=== PATIENT | male | born 1995 | race African-American/Black ===

== ENCOUNTER 2020-06-21 12:43 | Observation (INO) ==
[2020-06-21] MEDS ORDERED: SODIUM CHLORIDE 0.9% 1000ML 1,000 ML IV SCH (13:30)
[2020-06-21] MEDS ORDERED: ONDANSETRON INJ 2 MG/ML 2 ML VIAL IV STA (13:43)
[2020-06-21 14:04] LABS: Basophils # (auto) 0.03 K/uL (0-0.2); Basophils % (auto) 0.2 %; Eosinophils # (auto) 0.06 K/uL (0-0.5); Eosinophils % (auto) 0.4 %; Hematocrit (blood only) 42.8 % (42-52); Hemoglobin 15.5 g/dL (14.0-18.0); Immature Granulocytes # (auto) 0.04 K/uL (0.00-0.02); Immature Granulocytes % (auto) 0.3 %; Lymphocytes # (auto) 4.18 K/uL (1.2-3.4); Lymphocytes % (auto) 30.9 %; Mean Corpuscular Hemoglobin 32.8 pg (25-34); Mean Corpuscular Hgb Conc 36.2 g/dL (32-36); Mean Corpuscular Volume 90.7 fL (80-100); Monocytes # (auto) 0.73 K/uL (0.11-0.59); Monocytes % (auto) 5.4 %; Neutrophils # (auto) 8.48 K/uL (1.4-6.5); Neutrophils % (auto) 62.8 %; Platelet Count 230 K/uL (130-400); RDW Coefficient of Variation 13.1 % (11.5-14.5); RDW Standard Deviation 43.8 fL (36.4-46.3); Red Blood Count 4.72 M/uL (4.7-6.1); White Blood Count 13.52 K/uL (4.8-10.8)
--- NOTE | 2020-06-21 14:13 | Emergency Department Note ---
Impression & Plan Enterocolitis, Abdominal pain ED Provider Note NAME: RISA BLEVINS AGE: 25 SEX: M : 1995 ARRIVES VIA: Walk-In INFORMANT: Patient, ED PROVIDER(S): Nino Maxwell DO CHIEF COMPLAINT: Abdominal pain HPI: The patient is a 25-year-old male who presented to the emergency department at the request of [facility] for an evaluation of possible appendicitis. The patient is been having 2 weeks of crampy intermittent abdominal pain with nausea vomiting and diarrhea. Symptoms have been worsening over the last few days and this is why he went to see [facility]. He was also concerned about COVID-19 because he traveled recently to [facility]. He had a COVID-19 swab sent from [facility] which is still pending. The patient denies having any fever. He denies having any cough. He denies having any rectal bleeding. He is not been on antibiotics recently. He states that his last work-up when he saw his infectious disease specialist revealed normal labs and nondetectable virus. He states that he has been compliant with his medications. He is not been on antibiotics recently. ROS: See above HPI for pertinent positives & negatives. A total of 10 systems reviewed and were otherwise negative. PAST MEDICAL HISTORY: See Below PAST SURGICAL HISTORY: See Below FAMILY HISTORY: See Below SOCIAL HISTORY: See Below HOME MEDICATIONS: See Below ALLERGIES: See Below VITALS: See Below PHYSICAL EXAMINATION: GENERAL: Patient is awake alert in no acute distress patient is resting comfortably and showing no signs of anxiety EYES: The conjunctivae are clear. The pupils are round and reactive. EARS, NOSE, MOUTH AND THROAT: The nose is without any evidence of any deformity. Mucous members are moist. NECK: The neck is nontender and supple. RESPIRATORY: Normal respiratory effort is noted there is no evidence of wheezing rhonchi or rales CARDIOVASCULAR: Regular rate and rhythm noted there no murmurs rubs or gallops normal S1 normal S2. GASTROINTESTINAL: The abdomen is mildly distended and diffusely tender. There is no specific guarding or rigidity. MUSCULOSKELETAL/EXTREMITIES: There is no evidence of gross deformity full range of motion is noted in the hips and shoulders. SKIN: There is no obvious evidence of any rash. There are no petechiae, pallor or cyanosis noted. NEUROLOGIC: Patient is awake alert and oriented x3 strength is symmetric patellar reflexes are 2+ bilaterally MEDICAL DECISION MAKING: The patient is a 25-year-old male who has a history of being HIV positive. The patient has been on HIV medication for quite some time. He has been in good health prior to the last few weeks where he started to notice abdominal pain and diarrhea. The patient was seen at [facility]. At that time he did have a COVID swab although he does not have pulmonary COVID symptoms. The patient was sent to the emergency department from formerly [facility] for further work-up of possible appendicitis. I discussed the patient's laboratory and radiographic studies with him. He was treated with IV fluids and IV antiemetics. He was evaluated by the general surgeon because of a CAT scan that was not conclusive for appendicitis. At this time I feel the patient's condition is more likely consistent with an enterocolitis. The general surgical service did recommend that we observe the patient on the medicine service to ensure his symptoms are improving. Otherwise the patient was feeling much better. Stool was C. difficile negative. Triage Nursing notes reviewed. Prior medical records reviewed Vital Signs: reviewed and remarkable for no significant abnormalities DiffEtiologies such as appendicitis, diverticulitis, obstruction, inflammatory bowel disease, renal colic, PUD, biliary pathology, pancreatitis, mesenteric ischemia, aortic pathology, infections, genitourinary, UTI, perforated viscus, as well as others were entertained. ER treatment provided: See below Diagnostics interpreted by me: ECG: none Cardiac Monitoring: An order was placed for continuous cardiac monitoring. The monitor shows a rate of 89 with sinus rhythm. Laboratory studies: As stated above and show below. Imaging studies: See below Consultation(s): 1600: I discussed this case with Dr. Zavaleta who is on-call for general surgery. 1700: Dr. Deleon was notified about the patient. He will evaluate the patient for further management and disposition. ED COURSE: Procedures: none PDMP:reviewed and no issues Critical Care: None Past Med/Surg History Medical History HIV positive Surgical History History of tonsillectomy Social History Smoking Status: Smoker, status unknown Feels Safe at Home: Yes Allergies Allergies Allergy/AdvReac Type Severity Reaction Status Date / Time No Known Allergies Allergy Unverified 06/21/20 14:51 Home Meds Home Medications Medication Instructions Recorded Confirmed tisdvezvw-cwliicxg-sufgasa ala 1 tab PO QAM 06/21/20 06/21/20 [Biktarvy] Results & Data (ED) Vital Signs Vital Signs - 24 hr 06/21/20 12:50 06/21/20 13:49 06/21/20 13:51 Temperature 37.0 C Temperature Source Oral Pulse Rate 93 H Pulse Rate [Apical] 89 Pulse Rate from SpO2 Sensor Respiratory Rate 20 20 Respiratory Effort / Characteristics Non-Labored Respiratory Depth Normal Normal Respiratory Pattern Regular Blood Pressure 131/78 Blood Pressure [Left Arm] 120/65 Blood Pressure Mean 95 Blood Pressure Mean [Left Arm] 83 Blood Pressure Position Sitting Pulse Oximetry 99 99 97 Oxygen Delivery Method Room Air Room Air Room Air Sepsis Recent Fever Within 48 Hours No Sepsis New/Unexplained Change in Mental Status No Sepsis Action Taken by Nursing No Action Required 06/21/20 14:13 06/21/20 14:30 06/21/20 15:00 Temperature Temperature Source Pulse Rate 88 86 88 Pulse Rate [Apical] Pulse Rate from SpO2 Sensor 91 H 87 86 Respiratory Rate 14 19 16 Respiratory Effort / Characteristics Respiratory Depth Respiratory Pattern Blood Pressure 99/59 L 121/63 118/77 Blood Pressure [Left Arm] Blood Pressure Mean 87 84 94 Blood Pressure Mean [Left Arm] Blood Pressure Position Pulse Oximetry 98 96 97 Oxygen Delivery Method Room Air Sepsis Recent Fever Within 48 Hours Sepsis New/Unexplained Change in Mental Status Sepsis Action Taken by Jail Medications Current Medication List: was personally reviewed by me Laboratory Data Attestation: I reviewed the patient's lab results. Result diagrams: 06/21/20 13:40 06/21/20 13:40 Lab Results 06/21/20 06/21/20 06/21/20 Range/Units 13:40 13:40 14:05 WBC 13.52 H (4.8-10.8) K/uL RBC 4.72 (4.7-6.1) M/uL Hgb 15.5 (14.0-18.0) g/dL Hct 42.8 (42-52) % MCV 90.7 (80-100) fL MCH 32.8 (25-34) pg MCHC 36.2 H (32-36) g/dL RDW Std Deviation 43.8 (36.4-46.3) fL RDW Coeff of Joaquín 13.1 (11.5-14.5) % Plt Count 230 (130-400) K/uL MPV 10.0 (7.4-10.4) fL Immature Gran % (Auto) 0.3 % Neut % (Auto) 62.8 % Lymph % (Auto) 30.9 % [place] % (Auto) 5.4 % Eos % (Auto) 0.4 % Baso % (Auto) 0.2 % Neut # (Auto) 8.48 H (1.4-6.5) K/uL Lymph # (Auto) 4.18 H (1.2-3.4) K/uL [place] # (Auto) 0.73 H (0.11-0.59) K/uL Eos # (Auto) 0.06 (0-0.5) K/uL Baso # (Auto) 0.03 (0-0.2) K/uL Immature Gran # (Auto) 0.04 H (0.00-0.02) K/uL Sodium 141 (136-145) mmol/L Potassium 4.1 (3.5-5.1) mmol/L Chloride 108 H (98-107) mmol/L Carbon Dioxide 26 (21-32) mmol/L Anion Gap 7.0 (3-11) BUN 17 (7-18) mg/dl Creatinine 1.33 (0.6-1.4) mg/dl Est Cr Clr Drug Dosing 87.9 ml/min Est GFR ( Amer) 86.7 Est GFR (Non-Af Amer) 74.8 BUN/Creatinine Ratio 12.9 (10-20) Glucose 83 (70-99) mg/dl Calcium 8.5 (8.5-10.1) mg/dl Total Bilirubin 0.6 (0.2-1) mg/dl AST 25 (15-37) U/L ALT 36 (12-78) U/L Alkaline Phosphatase 73 (45-117) U/L Total Protein 7.5 (6.4-8.2) gm/dl Albumin 4.0 (3.4-5.0) gm/dl Globulin 3.5 (2.5-4.0) gm/dl Albumin/Globulin Ratio 1.1 (0.9-2) Lipase 108 (73-393) U/L Urine Color Yellow Urine Appearance Clear (Clear) Urine pH 5.0 (4.5-7.5) Ur Specific [place] 1.026 (1.000-1.030) Urine Protein Negative (Negative) Urine Glucose (UA) Negative (Negative) Urine Ketones Trace H (Negative) Urine Blood Negative (Negative) Urine Nitrite Negative (Negative) Urine Bilirubin Negative (Negative) Urine Urobilinogen Negative (Negative) Ur Leukocyte Esterase Negative (Negative) Stl C. diff Tox B Gene (Neg) 06/21/20 Range/Units 14:05 WBC (4.8-10.8) K/uL RBC (4.7-6.1) M/uL Hgb (14.0-18.0) g/dL Hct (42-52) % MCV (80-100) fL MCH (25-34) pg MCHC (32-36) g/dL RDW Std Deviation (36.4-46.3) fL RDW Coeff of Joaquín (11.5-14.5) % Plt Count (130-400) K/uL MPV (7.4-10.4) fL Immature Gran % (Auto) % Neut % (Auto) % Lymph % (Auto) % [place] % (Auto) % Eos % (Auto) % Baso % (Auto) % Neut # (Auto) (1.4-6.5) K/uL Lymph # (Auto) (1.2-3.4) K/uL [place] # (Auto) (0.11-0.59) K/uL Eos # (Auto) (0-0.5) K/uL Baso # (Auto) (0-0.2) K/uL Immature Gran # (Auto) (0.00-0.02) K/uL Sodium (136-145) mmol/L Potassium (3.5-5.1) mmol/L Chloride (98-107) mmol/L Carbon Dioxide (21-32) mmol/L Anion Gap (3-11) BUN (7-18) mg/dl Creatinine (0.6-1.4) mg/dl Est Cr Clr Drug Dosing ml/min Est GFR ( Amer) Est GFR (Non-Af Amer) BUN/Creatinine Ratio (10-20) Glucose (70-99) mg/dl Calcium (8.5-10.1) mg/dl Total Bilirubin (0.2-1) mg/dl AST (15-37) U/L ALT (12-78) U/L Alkaline Phosphatase (45-117) U/L Total Protein (6.4-8.2) gm/dl Albumin (3.4-5.0) gm/dl Globulin (2.5-4.0) gm/dl Albumin/Globulin Ratio (0.9-2) Lipase (73-393) U/L Urine Color Urine Appearance (Clear) Urine pH (4.5-7.5) Ur Specific [place] (1.000-1.030) Urine Protein (Negative) Urine Glucose (UA) (Negative) Urine Ketones (Negative) Urine Blood (Negative) Urine Nitrite (Negative) Urine Bilirubin (Negative) Urine Urobilinogen (Negative) Ur Leukocyte Esterase (Negative) Stl C. diff Tox B Gene Negative Cdiff Gene (Neg) Administered Medications Ioversol (Optiray 320 100ml) 93 ml IV ONCE PRN PRN Reason: Interaction Checking Stop: 06/25/20 15:15 Last Admin: 06/21/20 15:17 Dose: 93 ml Documented by: [id number] Discontinued Medications Sodium Chloride (Nss 1000ml) 1,000 mls @ 999 mls/hr IV .Q1H1M JESSICA Stop: 06/21/20 14:30 Last Infusion: 06/21/20 15:00 Dose: 0 mls/hr Documented by: [id number] Admin: 06/21/20 13:53 Dose: 999 mls/hr Documented by: [id number] Ondansetron HCl (Zofran) 4 mg IV NOW STA Stop: 06/21/20 13:44 Last Admin: 06/21/20 13:53 Dose: 4 mg Documented by: [id number] Imaging Data Radiologist's Impression: CT SCAN OF THE ABDOMEN AND PELVIS WITH IV CONTRAST CLINICAL HISTORY: Generalized abdominal pain. COMPARISON STUDY: No priors. TECHNIQUE: Following the IV administration of 94 cc of Optiray 320, CT scan of the abdomen and pelvis is performed from the lung bases to the proximal femora. Images are reviewed in the axial, sagittal, and coronal planes. IV contrast was administered without complication. A dose lowering technique was utilized adhering to the principles of ALARA. CT DOSE: 450.65 mGy.cm FINDINGS: Lung bases: The heart is normal in size and without pericardial effusion. The lung bases are clear. Liver: The contrast-enhanced liver is normal in size, contour, and attenuation. There is no intrahepatic biliary ductal dilatation. The hepatic veins and portal veins are patent. Gallbladder: Unremarkable. Spleen: Normal in size and attenuation. Pancreas: Unremarkable. Adrenal glands: Unremarkable. Kidneys: The contrast enhanced kidneys are normal in size and without hydronephrosis. The kidneys enhance symmetrically. Abdominal vasculature: The abdominal aorta is normal in course and caliber. Bowel: There is no bowel obstruction. Fecal retention and fluid is seen throughout the colon. The small bowel loops are mildly distended and fluid- filled. The base of the appendix is fluid-filled as seen on image #257. This is mildly thick-walled and measures up to 9 mm in diameter. The distal appendix is filled with gas Peritoneum: There is no intraperitoneal free air or abdominal ascites. Lymphadenopathy: There are numerous mildly enlarged mesenteric lymph nodes, likely reactive basis. Pelvic viscera: The bladder is decompressed and grossly unremarkable. The prostate and seminal vesicles are normal as visualized. Skeletal structures: No lytic or blastic lesions are seen. IMPRESSION: 1. The small bowel loops are mildly distended and fluid-filled, and there is liquid stool seen throughout the colon. The appearance favors a nonspecific enterocolitis, and clinical correlation will be required. 2. The appendix is identified in the right lower quadrant. The proximal appendix is mildly distended and fluid-filled with minimal wall thickening. The distal appendix is gas-filled and normal. These findings are likely related to the suspected enterocolitis. Acute appendicitis is considered much less likely but not entirely excluded. If there is strong clinical suspicion for acute appendicitis, or if the patient worsens with symptoms localizing to the right lower quadrant a short-term follow-up should be considered. 3. Numerous mildly enlarged mesenteric lymph nodes are likely on a reactive basis. 4. Additional findings as above. ACT 112: Negative or not required by law. Electronically signed by: Luan Damon M.D. 06/21/2020 3:34 PM Dictated: 06/21/20 1523 Transcribed: 06/21/20 1523 Blood Pressure Blood Pressure Findings: Normal blood pressure Discharge Plan Visit Data Chief Complaint: Abdominal Pain Stated Complaint: ABD PAIN ED Provider: Nino Maxwell Discharge Problem: Enterocolitis, Abdominal pain Patient Disposition: Being Evaluated by Hospitalist Condition: Good Forms Stand Alone Forms: [employer] Prescriptions Prescriptions: No Action Biktarvy 50-200-25 mg Tablet 1 tab PO QAM RF: 0 Referrals Referrals: PCP,NO [Primary Care Provider] -
[2020-06-21 14:20] LABS: BUN Creatinine Ratio 12.9 (10-20); Calcium 8.5 mg/dl (8.5-10.1); Creatinine Clr Calc Pharmacy 87.9 ml/min; Est GFR (African American) 86.7; Est GFR (Non-African American) 74.8; Potassium 4.1 mmol/L (3.5-5.1)
[2020-06-21 14:23] LABS: Albumin Globulin Ratio 1.1 (0.9-2); Bilirubin,Total 0.6 mg/dl (0.2-1); Globulin 3.5 gm/dl (2.5-4.0); Total Protein 7.5 gm/dl (6.4-8.2)
[2020-06-21 14:27] LABS: Appearance Urine Clear (Clear); Bilirubin Urine Negative (Negative); Blood Urine Negative (Negative); Color Urine Yellow; Glucose Urine UA Negative (Negative); Ketones Urine Trace (Negative); Leukocyte Esterase Urine Negative (Negative); Nitrite Urine Negative (Negative); Protein Urine Negative (Negative); Specific Gravity Urine 1.026 (1.000-1.030); Urobilinogen Urine Negative (Negative)
[2020-06-21] MEDS ORDERED: IOVERSOL 100ml IV PRN (15:16)
--- NOTE | 2020-06-21 15:35 | CT Scan Report ---
CT SCAN OF THE ABDOMEN AND PELVIS WITH IV CONTRAST CLINICAL HISTORY: Generalized abdominal pain. COMPARISON STUDY: No priors. TECHNIQUE: Following the IV administration of 94 cc of Optiray 320, CT scan of the abdomen and pelvi s is performed from the lung bases to the proximal femora. Images are reviewed in the axial, sagittal , and coronal planes. IV contrast was administered without complication. A dose lowering technique wa s utilized adhering to the principles of ALARA. CT DOSE: 450.65 mGy.cm FINDINGS: Lung bases: The heart is normal in size and without pericardial effusion. The lung bases are clear. Liver: The contrast-enhanced liver is normal in size, contour, and attenuation. There is no intrahepa tic biliary ductal dilatation. The hepatic veins and portal veins are patent. Gallbladder: Unremarkable. Spleen: Normal in size and attenuation. Pancreas: Unremarkable. Adrenal glands: Unremarkable. Kidneys: The contrast enhanced kidneys are normal in size and without hydronephrosis. The kidneys enh ance symmetrically. Abdominal vasculature: The abdominal aorta is normal in course and caliber. Bowel: There is no bowel obstruction. Fecal retention and fluid is seen throughout the colon. The sma ll bowel loops are mildly distended and fluid-filled. The base of the appendix is fluid-filled as see n on image #257. This is mildly thick-walled and measures up to 9 mm in diameter. The distal appendix is filled with gas Peritoneum: There is no intraperitoneal free air or abdominal ascites. Lymphadenopathy: There are numerous mildly enlarged mesenteric lymph nodes, likely reactive basis. Pelvic viscera: The bladder is decompressed and grossly unremarkable. The prostate and seminal vesicl es are normal as visualized. Skeletal structures: No lytic or blastic lesions are seen. IMPRESSION: 1. The small bowel loops are mildly distended and fluid-filled, and there is liquid stool seen throug hout the colon. The appearance favors a nonspecific enterocolitis, and clinical correlation will be r equired. 2. The appendix is identified in the right lower quadrant. The proximal appendix is mildly distended and fluid-filled with minimal wall thickening. The distal appendix is gas-filled and normal. These fi ndings are likely related to the suspected enterocolitis. Acute appendicitis is considered much less likely but not entirely excluded. If there is strong clinical suspicion for acute appendicitis, or if the patient worsens with symptoms localizing to the right lower quadrant a short-term follow-up shou ld be considered. 3. Numerous mildly enlarged mesenteric lymph nodes are likely on a reactive basis. 4. Additional findings as above. ACT 112: Negative or not required by law. Electronically signed by: Luan Damon M.D. 06/21/2020 3:34 PM
--- NOTE | 2020-06-21 16:31 | Surgery Consultation ---
Date of Consultation June 21, 2020 Assessment & Plan (1) Enterocolitis: pt's history , CT and exam not c/w appendicitis suspect enterocolitis. ? viral vs bacterial vs other. recommend admit, supportive care, stool cx's, could consider empiric tx with cipro/flagyl. would consider GI consult and +/- ID consult in light of pt's +HIV status and possible immunocompromised infection. History of Present Illness History of Present Illness 25 y/o HIV + pt with recent travel to [facility] approx 2.5 weeks ago. Had "bad" "raw" food and has been sick ever since. main complaints are nausea with emesis, diarrhea and diffuse abdominal pain. has lost approx 15 lbs. he is able to keep liquids down but not food. referred to ER by [facility] [place]. Ct scan with fluid filled bowel c/w enterocolitis. Allergies Allergy/AdvReac Type Severity Reaction Status Date / Time No Known Allergies Allergy Unverified 06/21/20 14:51 Home Medications Home Medications Medication Instructions Recorded Confirmed Type eejnkktkt-yqpcjiey-cqntbah ala 1 tab PO QAM 06/21/20 06/21/20 History [Biktarvy] Patient History Medical History HIV positive Surgical History History of tonsillectomy Social History Smoking Status: Smoker, status unknown Feels Safe at Home: Yes Physical Exam Constitutional: WD/WN, vitals as above no acute distress and not ill appearing Eyes: PERRL, conjunctivae normal, anicteric sclerae EOM intact bilaterally ENMT: external ear and nose normal, oropharynx normal Ears: no hearing impairment Neck: trachea midline, no thyromegaly Respiratory: normal respiratory effort; no respiratory distress and does not use accessory muscles Cardiovascular: Rate/Rhythm: regular rate and regular rhythm Gastrointestinal (Abdomen): soft. mildly distended. diffusely tender. hyperactive bs's. voluntary guarding but no peritoneal signs. Skin: no rashes, warm and dry Psychiatric: Orientation: alert, oriented x 3 and cooperative Results & Data Vital Signs (Past 12 Hours) Vital Signs Temp Pulse Pulse Resp BP BP Pulse Ox 07/26/20 15:00 88 16 118/77 97 06/21/20 14:30 86 19 121/63 96 06/21/20 14:13 88 14 99/59 L 98 06/21/20 13:51 97 06/21/20 13:49 89 20 120/65 99 06/21/20 12:50 37.0 C 93 H 20 131/78 99 PG Care Time/CCT Total # of Minutes Spent Total Time Spent with Patient: Total time spent is greater than 50% in coordination of care (as documented) at patient's floor/unit and/or counseling patient: Coding Level of Care Code 42177 Office/OBS Consult Lvl 4 Diagnoses Enterocolitis K52.9
--- NOTE | 2020-06-21 18:24 | History & Physical Report ---
Date of Service June 21, 2020 Assessment & Plan (1) Enterocolitis: Supportive management with ondansetron for nausea Imodium for diarrhea LR @ 125 ml/hr Clear liquid diet Stool culture (2) HIV positive: Viral load undetectable as per patient. Unknown CD4 count but never had an opportunistic infection. Taking Biktarvy. Given viral load undetectable for years this is unlikely to be of any clinical consequence to acute illness. (3) Abdominal pain: Concern for appendicitis with elevated WBC, however pain/imaging much more consistent with enterocolitis at this time. (4) Severe acute respiratory syndrome coronavirus 2 (SARS-CoV-2) test result unknown: Test outstanding taken at Urgent care on 06/22/2020. Contact at work positive. No URI symptoms but diarrheal illness now for 3 weeks. Admission and Anticipated Discharge Date Admission Date: 06/21/2020 History of Present Illness Chief Complaint: Abdominal pain and diarrhea Primary Care Provider: NO PCP Sanjiv Smith is a 25 year old male with HIV who presents with 3 weeks of diarrheal illness and abdominal pain. This started after he visited [facility] and ate out at a restaurant there. His symptoms have been getting progressively worse during that time. He had been meaning to get COVID-19 testing as a work colleague had tested positive in [place] although he has no URI symptoms. He is in [place] as his partner lives here. Because of the gradual progression of his symptoms he went to urgent care today and was referred to the ER due to concern for appendicitis. Because of the COVID-19 exposure he was tested at urgent care with the test pending at this time (sent on day of admission). Abdominal pain is generalized and has not changed in character but just more severe today than it has been with associated vomiting this morning. Bowel movements are liquid but brown. With regards to his HIV he has been on his current medication Bikatarvy for [address] Aldridge @ [facility]. He doesn't know his current CD4 count but report his viral load has been undetectable for multiple years. No prior history of opportunistic infections. No fevers, chills, cough, shortness of breath nasal congestion. 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 Beliefs That Will Affect Care: None Current Living Situation: Alone Other Information That Helps Us Care for You: No Feels Safe at Home: Yes Safety Concerns: Feels Safe At This Time Review of Systems Review of Systems: All systems reviewed & are unremarkable except as noted in HPI & below Physical Exam Constitutional: WD/WN, vitals as above Eyes: + anicteric sclerae; normal pupil size ENMT: external ear and nose normal, oropharynx normal Neck: trachea midline, no thyromegaly Respiratory: normal respiratory effort, lungs clear to auscultation Cardiovascular: RRR, no murmur, no edema Gastrointestinal (Abdomen): Inspection/Auscultation: abdomen normal to inspection and normal bowel sounds Percussion/Palpation: + abdomen tender (Generalized (no worse in RLQ than elsewhere)), + guarding and abdomen soft; abdomen not rigid Musculoskeletal: no cyanosis or clubbing, extremities motor strength 5/5 Skin: no rashes, warm and dry Neurologic: moves all extremities and awake; not confused Psychiatric: A+Ox3, euthymic affect Genitourinary: no CVA tenderness Results & Data Results & Data ([facility]) Vital Signs (Past 12 Hours) Vital Signs Temp Pulse Pulse Resp BP BP Pulse Ox 06/21/20 17:31 15 94 06/21/20 17:30 15 117/59 L 95 06/21/20 17:29 14 114/72 94 06/21/20 17:28 14 95 06/21/20 15:01 84 17 97 06/21/20 15:00 88 16 118/77 97 06/21/20 14:30 86 19 121/63 96 06/21/20 14:13 88 14 99/59 L 98 06/21/20 13:51 97 06/21/20 13:49 89 20 120/65 99 06/21/20 12:50 37.0 C 93 H 20 131/[address] SCAN OF THE ABDOMEN AND PELVIS WITH IV CONTRAST IMPRESSION: 1. The small bowel loops are mildly distended and fluid-filled, and there is liquid stool seen throughout the colon. The appearance favors a nonspecific enterocolitis, and clinical correlation will be required. 2. The appendix is identified in the right lower quadrant. The proximal appendix is mildly distended and fluid-filled with minimal wall thickening. The distal appendix is gas-filled and normal. These findings are likely related to the suspected enterocolitis. Acute appendicitis is considered much less likely but not entirely excluded. If there is strong clinical suspicion for acute appendicitis, or if the patient worsens with symptoms localizing to the right lower quadrant a short-term follow-up should be considered. 3. Numerous mildly enlarged mesenteric lymph nodes are likely on a reactive basis. 4. Additional findings as above. Code Status & VTE Plan Code Status Full VTE Prophylaxis Plan VTE Prophylaxis will be ordered: No Reason for no VTE drug order: Treatment not indicated Reason for no VTE mechanical prophylaxis: Treatment not indicated PG Care Time/CCT Total # of Minutes Spent Total Time Spent with Patient: Total time spent is greater than 50% in coordination of care (as documented) at patient's floor/unit and/or counseling patient: Coding Level of Care Code 86939 OBS Care - Level 2 Diagnoses Enterocolitis K52.9 HIV positive Z21 Abdominal pain R10.84 Abdominal location: generalized Severe acute respiratory syndrome coronavirus 2 (SARS-CoV-2) test result unknown Z20.828 (1) Abdominal pain Abdominal location: generalized Qualified Code(s): R10.84 - Generalized abdominal pain
[2020-06-21] MEDS ORDERED: KETOROLAC TROMETHAMINE 15 MG/ML VIAL IV PRN (20:14)
[2020-06-21] MEDS ORDERED: ACETAMINOPHEN 325 MG TAB PO PRN (20:14)
[2020-06-21] MEDS: LACTATED RINGER'S 1,000 ML IV SCH (20:28)
[2020-06-22] MEDS: LACTATED RINGER'S 1,000 ML IV SCH (03:02)
[2020-06-22] MEDS ORDERED: BIKTARVY: ORDER AWAITING ACTION SCH (08:00)
--- NOTE | 2020-06-22 08:21 | Hospitalist Progress Note ---
Date of Service June 22, 2020 Assessment & Plan (1) Enterocolitis: Supportive management with ondansetron for nausea Imodium for diarrhea LR @ 125 ml/hr On 06/22/2020 advancing diet to full liquid diet will advance to regular tolerant (2) HIV positive: Viral load undetectable as per patient. Unknown CD4 count but never had an opportunistic infection. Taking Biktarvy. (3) Abdominal pain: Concern for appendicitis with elevated WBC, however initial imaging does not support appendicitis as a diagnosis. His pain remains focal in that area will reassess on 06/23 and if persistent may consider pursuing additional imaging if resolves may consider discharging (4) Severe acute respiratory syndrome coronavirus 2 (SARS-CoV-2) test result unknown: Test outstanding taken at Urgent care on 06/22/2020 Admission and Anticipated Discharge Date Admission Date: June 21, 2020 Subjective Patient is doing well with lessened abdominal discomfort and more appetite and hunger still with focal pain on the right lower quadrant area Review of Systems Review of Systems: Mild distress and fatigue no headache, blurry or double vision no speech or swallowing issues no chest pain, pressure or palpitations no shortness of breath, cough or wheezes Right lower quadrant abdominal pain only worse with examination, no nausea or vomiting, diarrhea is lessening no dysuria, hematuria or frequency no focal joint pain or swelling no back pain, CVA tenderness or radicular pain no bruising, bleeding or rashes no focal signs of weakness or numbness or altered sensation no complaints or anxiety or depression Physical Exam Physical Exam: The patient appeared well nourished and normally developed. Vital signs as documented. Head exam is normocephalic atraumatic no scleral icterus Neck is without JVD, thyromegaly, or carotid bruits. Lungs are clear to auscultation, no focal loss of breath sounds Cardiac exam, Rhythm is regular.. No murmurs, rubs or gallops. Abdominal exam reveals normal bowel sounds, soft minor right lower quadrant tenderness Extremities are nonedematous and both pedal pulses are normal. Neurologic exam is alert and oriented, no focal loss of strength or sensation Skin is without bruises or rashes Psychologically is without concerns for anxiety or depression Results & Data Results & Data ([facility]) Vital Signs (Past 12 Hours) Vital Signs Temp Pulse Resp BP Pulse Ox 06/22/20 07:30 97.3 F L 64 14 128/75 99 06/21/20 23:25 97.9 F 85 16 131/76 98 PG Care Time/CCT Total # of Minutes Spent Total Time Spent with Patient: Total time spent is greater than 50% in coordination of care (as documented) at patient's floor/unit and/or counseling patient: Coding Level of Care Code 96061 Subseq Hosp Care Lvl 2 Diagnoses Enterocolitis K52.9 HIV positive Z21 Abdominal pain R10.84 Abdominal location: generalized Severe acute respiratory syndrome coronavirus 2 (SARS-CoV-2) test result unknown Z20.828 (1) Abdominal pain Abdominal location: generalized Qualified Code(s): R10.84 - Generalized abdominal pain
[2020-06-22] MEDS: ONDANSETRON INJ 2 MG/ML 2 ML VIAL IV PRN ×2 (08:59→13:31)
[2020-06-22 09:55] LABS: Basophils # (auto) 0.03 K/uL (0-0.2); Basophils % (auto) 0.3 %; Eosinophils # (auto) 0.09 K/uL (0-0.5); Hematocrit (blood only) 40.1 % (42-52); Hemoglobin 13.9 g/dL (14.0-18.0); Immature Granulocytes # (auto) 0.02 K/uL (0.00-0.02); Immature Granulocytes % (auto) 0.2 %; Lymphocytes % (auto) 36.9 %; Mean Corpuscular Hgb Conc 34.7 g/dL (32-36); Mean Corpuscular Volume 92.2 fL (80-100); Mean Platelet Volume 9.7 fL (7.4-10.4); Monocytes # (auto) 0.65 K/uL (0.11-0.59); Monocytes % (auto) 7.5 %; Neutrophils # (auto) 4.69 K/uL (1.4-6.5); Neutrophils % (auto) 54.1 %; Platelet Count 211 K/uL (130-400); RDW Coefficient of Variation 13.3 % (11.5-14.5); RDW Standard Deviation 45.2 fL (36.4-46.3); Red Blood Count 4.35 M/uL (4.7-6.1); White Blood Count 8.68 K/uL (4.8-10.8)
[2020-06-22 10:37] LABS: Albumin Level 3.2 gm/dl (3.4-5.0); BUN Creatinine Ratio 11.2 (10-20); Calcium 8.1 mg/dl (8.5-10.1); Creatinine Clr Calc Pharmacy 81.4 ml/min; Est GFR (African American) 78.1; Est GFR (Non-African American) 67.4; Potassium 3.5 mmol/L (3.5-5.1)
[2020-06-22 10:39] LABS: Bilirubin,Total 0.8 mg/dl (0.2-1); Globulin 3.2 gm/dl (2.5-4.0); Total Protein 6.4 gm/dl (6.4-8.2)
[2020-06-22 11:09] LABS: iSTAT Creatinine 1.3 mg/dl (0.6-1.3); iSTAT Hemoglobin 15.6 g/dl (14.0-18.0); iSTAT Ionized Calcium 1.19 mmol/l (1.12-1.32)
[2020-06-22] MEDS: BIKTARVY PO SCH (13:30)
[2020-06-23] MEDS: BIKTARVY PO SCH (08:33)
--- NOTE | 2020-06-23 16:42 | Discharge Summary ---
Date of Service June 23, 2020 Admission HPI Per Admitting Provider Sanjiv Smith is a 25 year old male with HIV who presents with 3 weeks of diarrheal illness and abdominal pain. This started after he visited [facility] and ate out at a restaurant there. His symptoms have been getting progressively worse during that time. He had been meaning to get COVID-19 testing as a work colleague had tested positive in [place] although he has no URI symptoms. He is in [place] as his partner lives here. Because of the gradual progression of his symptoms he went to urgent care today and was referred to the ER due to concern for appendicitis. Because of the COVID-19 exposure he was tested at urgent care with the test pending at this time (sent on day of admission). Abdominal pain is generalized and has not changed in character but just more severe today than it has been with associated vomiting this morning. Bowel movements are liquid but brown. With regards to his HIV he has been on his current medication Bikatarvy for [address] Aldridge @ [facility]. He doesn't know his current CD4 count but report his viral load has been undetectable for multiple years. No prior history of opportunistic infections. No fevers, chills, cough, shortness of breath nasal congestion. 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 Principal Diagnosis Enterocolitis resolved Discharge Exam The patient appeared well Vital signs as documented. Lungs are clear to auscultation and appear unlabored Cardiac exam, Rhythm is regular.. No murmurs, rubs or gallops. Abdominal exam reveals normal bowel sounds, soft non tender, no masses Extremities are nonedematous and both pedal pulses are normal. Neurologic exam is alert and oriented, no focal loss of strength or sensation Skin is without bruises or rashes Psychologically is without concerns for anxiety or depression Discharge Data Allergies Allergy/AdvReac Type Severity Reaction Status Date / Time No Known Allergies Allergy Unverified 06/21/20 14:51 Consultations 06/21/20 16:08 Consult General Surgery Stat 06/21/20 16:44 ED Decision to Admit Stat Ordered Studies 06/21/20 13:21 CT abd pelvis IV con only Stat Hospital Course (1) Enterocolitis: Resolved with supportive management with ondansetron for nausea On 06/22/2020 advancing diet to full liquid diet tolerating advancement to regular diet (2) HIV positive: Viral load undetectable as per patient. Unknown CD4 count but never had an opportunistic infection. Taking Biktarvy. Given viral load undetectable for years this is unlikely to be of any clinical consequence to acute illness. (3) Abdominal pain: Concern for appendicitis with elevated WBC, however initial imaging does not support appendicitis as a diagnosis. Pain completely resolved prior to discharge (4) Severe acute respiratory syndrome coronavirus 2 (SARS-CoV-2) test result unknown: Test outstanding taken at Urgent care on 06/22/2020. Contact at work positive. No URI symptoms but diarrheal illness now for 3 weeks. Given usp home instructions until he has the results of his test Total Time Total Time Spent Total Time Spent (In Minutes): It required greater than 30 minutes to prepare this patient for discharge Discharge Plan Discharge Items Patient Disposition: Home - Self-Care Reason For Visit: ENTEROCOLITIS Discharge Diagnosis: diarrheal illness resolved Condition on Discharge: Good Activity: Resume your previous activity Non-emergency contact: Primary Care Provider Call non-emergency contact if: your symptoms worsen Follow-up/Referrals: PCP,NO [Primary Care Provider] - Diet: Regular Addtl Attending Provider Instructions: please have plenty of liquids and if your diarrhea returns please have yourself re evaluated by a local health care provider self quarentine for Covid until you have your test results or 14 days from your testHome Isolation COVID-19 Instructions The following information about Home Isolation is from the CDC Website: https://www.cdc.gov/coronavirus/2019-ncov/hcp/rrezibqd-feudiwu-luzgmu.html Stay home except to get medical care People who are mildly ill with COVID-19 are able to isolate at home during their illness. You should restrict activities outside your home, except for getting medical care. Do not go to work, school, or public areas. Avoid using public transportation, ride-sharing, or taxis. Separate yourself from other people and animals in your home People: As much as possible, you should stay in a specific room and away from other people in your home. Also, you should use a separate bathroom, if available. Animals: You should restrict contact with pets and other animals while you are sick with COVID-19, just like you would around other people. Although there have not been reports of pets or other animals becoming sick with COVID-19, it is still recommended that people sick with COVID-19 limit contact with animals until more information is known about the virus. When possible, have another member of your household care for your animals while you are sick. If you are sick with COVID-19, avoid contact with your pet, including petting, snuggling, being kissed or licked, and sharing food. If you must care for your pet or be around animals while you are sick, wash your hands before and after you interact with pets and wear a face mask. Call ahead before visiting your doctor If you have a medical appointment, call the healthcare provider and tell them that you have pending test results for COVID-19. This will help the healthcare providers office take steps to keep other people from getting infected or exposed. Wear a face mask You should wear a face mask when you are around other people (e.g., sharing a room or vehicle) or pets and before you enter a healthcare providers office. If you are not able to wear a face mask (for example, because it causes trouble breathing), then people who live with you should not stay in the same room with you, or they should wear a face mask if they enter your room. Cover your coughs and sneezes Cover your mouth and nose with a tissue when you cough or sneeze. Throw used tissues in a lined trash can. Immediately wash your hands with soap and water for at least 20 seconds or, if soap and water are not available, clean your hands with an alcohol-based hand retail assistant that contains at least 60% alcohol. Clean your hands often Wash your hands often with soap and water for at least 20 seconds, especially after blowing your nose, coughing, or sneezing; going to the bathroom; and before eating or preparing food. If soap and water are not readily available, use an alcohol-based hand retail assistant with at least 60% alcohol, covering all surfaces of your hands and rubbing them together until they feel dry. Soap and water are the best option if hands are visibly dirty. Avoid touching your eyes, nose, and mouth with unwashed hands. Avoid sharing personal household items You should not share dishes, drinking glasses, cups, eating utensils, towels, or bedding with other people or pets in your home. After using these items, they should be washed thoroughly with soap and water. Clean all high-touch surfaces everyday High touch surfaces include counters, tabletops, doorknobs, bathroom fixtures, toilets, phones, keyboards, tablets, and bedside tables. Also, clean any surfaces that may have blood, stool, or body fluids on them. Use a household cleaning spray or wipe, according to the label instructions. Labels contain instructions for safe and effective use of the cleaning product including precautions you should take when applying the product, such as wearing gloves and making sure you have good ventilation during use of the product. Monitor your symptoms Seek prompt medical attention if your illness is worsening (e.g., difficulty breathing).Beforeseeking care, call your healthcare provider and tell them that you have, or are being evaluated for, COVID-19. Put on a face mask before you enter the facility. These steps will help the healthcare providers office to keep other people in the office or waiting room from getting infected or exposed. Ask your healthcare provider to call the local or state health department. Persons who are placed under active monitoring or facilitated self- monitoring should follow instructions provided by their local health department or occupational health professionals, as appropriate. When working with your local health department check their available hours. If you have a medical emergency and need to call 911, notify the dispatch personnel that you have, or are being evaluated for COVID-19. If possible, put on a face mask before emergency medical services arrive. Discontinuing home isolation Patients with confirmed COVID-19 should remain under home isolation precautions until the risk of secondary transmission to others is thought to be low. The decision to discontinue home isolation precautions should be made on a [id number]-[id number] basis, in consultation with healthcare providers and state and local health departments. Pending Studies at Discharge: Yes (your outpatient Covid-19 test) Stand-Alone Forms: My [employer], Smoking Cessation Medications and DC Order Prescriptions: Continued Biktarvy 50-200-25 mg Tablet 1 tab PO QAM RF: 0 Discharge Orders: Discharge Order (Routine); Ordered 06/23/20 Ordered By: Kam Marino Admission Data Admit Date/Time: 06/21/20 18:36 Attending Provider: Kam Marino Admit Provider: Evgeny Deleon Primary Care Provider: PCP,NO Other Providers: Ross Zavaleta ; Evgeny Deleon Other Interventions: Discharge Summary Assessment (RN) Last Done: 06/23/20 11:57 DC Date/Time DO NOT enter until pt leaves facility: 06/23/20 13:02 Coding Level of Care Code D/C Day Management >30 mins Diagnoses Enterocolitis K52.9 HIV positive Z21 Abdominal pain R10.84 Abdominal location: generalized Severe acute respiratory syndrome coronavirus 2 (SARS-CoV-2) test result unknown Z20.828
== END 2020-06-23 13:02 | disposition home or self-care (01) ==
LOC: 3E 12:43 → ED 12:43 → SUATTDRO 18:36 → 3E 19:24